=== PATIENT | male | born 1960 | race Caucasian/White ===

== ENCOUNTER → 2018-12-04 | Outpatient (CLI) | payer OTHER | END | disposition home or self-care (01) | LOC: PLD 08:18 → LAB SHORT 08:18 | DX: L82.1 Other seborrheic keratosis (principal) | CPT/HCPCS: 88305 ==

== ENCOUNTER 2025-03-25 20:24 | Observation (INO) | payer BC ==
[~2025-03-25] VITALS: Ht 182.9 cm; Wt 95.8 kg
[2025-03-25] MEDS ORDERED: NS 1,000 ML IV SCH (20:45)
[2025-03-25 21:04] LABS: BASOPHILS ABSOLUTE AUTO 0.02 K/mm3 (0.00-0.23); BASOPHILS PERCENT AUTO 0 % (0-2); EOSINOPHILS ABSOLUTE AUTO 0.00 K/mm3 (0.00-0.68); EOSINOPHILS PERCENT AUTO 0 % (0-6); Hematocrit 42.2 % (37.0-53.0); Hemoglobin 14.9 g/dL (13.5-17.5); IMMATURE GRAN ABSOLUTE AUTO 0.01 K/mm3 (0.00-0.10); IMMATURE GRAN PERCENT AUTO 0 % (0-1); LYMPHOCYTES ABSOLUTE AUTO 1.32 K/mm3 (0.84-5.20); LYMPHOCYTES PERCENT AUTO 20 % (21-46); MONOCYTES ABSOLUTE AUTO 0.44 K/mm3 (0.16-1.47); MONOCYTES PERCENT AUTO 7 % (4-13); Mean Corpuscular HGB Conc 35.3 g/dL (31.5-36.5); Mean Corpuscular Volume 92 fL (80-100); NEUTROPHILS ABSOLUTE AUTO 4.72 K/mm3 (1.96-9.15); NEUTROPHILS PERCENT AUTO 72 % (41-73); NRBC ABSOLUTE 0.00 K/mm3 (0.00-0.02); NRBC Auto 0.0 /100 WBC (0.0-0.2); Platelet Count 214 K/mm3 (150-400); RDW Coefficient Variation 12.5 % (11.7-14.2); RDW Standard Deviation 42.3 fL (35.1-46.3)
[2025-03-25 21:19] LABS: Alanine Aminotransfer (ALT/SGP 44.0 U/L (12-78); Albumin, Blood 3.8 g/dL (3.4-5.0); Albumin/Globulin Ratio 1.1 (0.8-1.8); Anion Gap 10.0 mmol/L (3-11); Aspartate Aminotrans (AST/SGOT 22.0 U/L (12-37); Bilirubin, Total 0.7 mg/dL (0.1-1.0); Blood Urea Nitrogen 21.0 mg/dL (8-24); CO2, Blood 25.0 mmol/L (21-32); Calcium, Blood 9.1 mg/dL (8.5-10.1); Chloride, Blood 104.0 mmol/L (98-108); Creatinine, Blood 0.88 mg/dL (0.60-1.20); Globulin, Blood 3.6 g/dL (2.2-4.0); Glucose, Blood 146.0 mg/dL (70-99); Magnesium, Blood 1.9 mg/dL (1.6-2.4); Potassium, Blood 4.2 mmol/L (3.5-5.5); Sodium, Blood 135.0 mmol/L (136-145); Total Protein, Blood 7.4 g/dL (6.4-8.2)
[2025-03-25 22:08] LABS: Source, Urine Voided
[2025-03-25 22:14] LABS: Bilirubin, Urine Neg (Neg); Glucose Qualitative, Urine Neg (Neg); Ketones, Urine 2+ (Neg); Leukocyte Esterase, Urine Neg (Neg); Protein, Urine 2+ (Neg); Specific Gravity, Urine 1.010 (1.003-1.022); Urobilinogen, Urine NORM (Normal)
[2025-03-25 22:29] LABS: Color, Urine Yellow (P-Yellow)
[2025-03-25 22:30] LABS: Red Blood Cells, Urine Not Seen /hpf (0-2); White Blood Cells, Urine Not Seen /hpf (0-5)
[2025-03-25] MEDS ORDERED: NS 1,000 ML IV ONE (22:40)
[2025-03-25] MEDS ORDERED: FLU VACC TS2025-26(6MOS UP)/PF 45 MCG/0.5 ML SYRINGE IM ONE (23:10)
[2025-03-25] MEDS ORDERED: Ondansetron HCl 2 MG / ML 2ML Vial IV PRN (23:10)
[2025-03-25] MEDS ORDERED: Mag Sulfate 1 GM/D5% 100ML 100 ML IV STA (23:45)
[2025-03-26] VITALS (7 sets, daily range): BP systolic 146–156; BP diastolic 75–93
[2025-03-26 00:09] LABS: Phosphorus, Blood 2.3 mg/dL (2.5-4.9)
[2025-03-26] MEDS ORDERED: DILT30 PO (00:55)
[2025-03-26] MEDS ORDERED: MEGA 3-6-9 SO1233 MG PO (00:58)
[2025-03-26] MEDS ORDERED: CENTRUM SILVER1 EAC2 PO (00:59)
[2025-03-26 05:03] LABS: BASOPHILS ABSOLUTE AUTO 0.01 K/mm3 (0.00-0.23); BASOPHILS PERCENT AUTO 0 % (0-2); EOSINOPHILS ABSOLUTE AUTO 0.00 K/mm3 (0.00-0.68); EOSINOPHILS PERCENT AUTO 0 % (0-6); Hematocrit 39.7 % (37.0-53.0); Hemoglobin 14.1 g/dL (13.5-17.5); IMMATURE GRAN ABSOLUTE AUTO 0.02 K/mm3 (0.00-0.10); IMMATURE GRAN PERCENT AUTO 0 % (0-1); LYMPHOCYTES ABSOLUTE AUTO 1.83 K/mm3 (0.84-5.20); LYMPHOCYTES PERCENT AUTO 30 % (21-46); MONOCYTES ABSOLUTE AUTO 0.48 K/mm3 (0.16-1.47); MONOCYTES PERCENT AUTO 8 % (4-13); Mean Corpuscular HGB Conc 35.5 g/dL (31.5-36.5); Mean Corpuscular Volume 93 fL (80-100); NEUTROPHILS ABSOLUTE AUTO 3.77 K/mm3 (1.96-9.15); NEUTROPHILS PERCENT AUTO 62 % (41-73); NRBC ABSOLUTE 0.00 K/mm3 (0.00-0.02); NRBC Auto 0.0 /100 WBC (0.0-0.2); Platelet Count 191 K/mm3 (150-400); RDW Coefficient Variation 12.5 % (11.7-14.2); RDW Standard Deviation 42.5 fL (35.1-46.3)
[2025-03-26 05:41] LABS: Alanine Aminotransfer (ALT/SGP 39.0 U/L (12-78); Albumin, Blood 3.5 g/dL (3.4-5.0); Albumin/Globulin Ratio 1.2 (0.8-1.8); Anion Gap 10.0 mmol/L (3-11); Aspartate Aminotrans (AST/SGOT 22.0 U/L (12-37); Bilirubin, Total 0.7 mg/dL (0.1-1.0); Blood Urea Nitrogen 16.0 mg/dL (8-24); CO2, Blood 24.0 mmol/L (21-32); Calcium, Blood 8.3 mg/dL (8.5-10.1); Chloride, Blood 104.0 mmol/L (98-108); Creatinine, Blood 0.78 mg/dL (0.60-1.20); Globulin, Blood 3.0 g/dL (2.2-4.0); Glucose, Blood 160.0 mg/dL (70-99); Potassium, Blood 3.9 mmol/L (3.5-5.5); Sodium, Blood 134.0 mmol/L (136-145); Total Protein, Blood 6.5 g/dL (6.4-8.2)
--- NOTE | 2025-03-26 06:47 | NUR ---
PT ARRIVED FROM ED VIA STRETCHER. PT'S GAIT WAS UNSTEADY WHILE GETTING A STANDING WEIGHT. 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 PT STATES HE DOES NOT REMEMBER THE EPISODE AT ALL. PT STATES HE REMEMBERS CLOCKING IN TO WORK AND WAKING UP IN THE ED. PT IS AWARE OF THE TIME, DATE, CURRENT LOCATION, SELF, BUT IS UNAWARE OF WHO THE CURRENT PRESIDENT IS. PT HAS SHORT TERM MEMORY LOSS AND REPEATS HIMSELF UNKNOWINGLY. PT'S BROTHER, MADELINE, IS AT THE BEDSIDE AND STATES PT'S BEHAVIOR IS IS DIFERENT FROM HIS BASELINE. PT HAS AN ECHO PENDING TODAY. DR. FUENTES CAME TO THE BEDSIDE TO ASSESS PT. NO NEW ORDERS GIVEN. IV FLUIDS INFUSING. BED ALARM ON. BED LOCKED IN LOWEST POSITION. CALL LIGHT WITHIN REACH. PT USING URINAL APPROPRIATELY.
[2025-03-26] MEDS ORDERED: Enoxaparin 40 MG/0.4 ML SYR SC SCH (09:00)
--- NOTE | 2025-03-26 09:50 | NUR ---
am note this rn assumed care at 0700. vital signs stable. tele sinus rhythm 80-90s. spo2 >90% on room air. patient is alert and oriented x4. patient will repeat self several times and has difficulty remembering the events that lead up to his syncopal episode. perrla. patient has equal strength in net software architect. patient denies pain, chest pain/pressure or shortness of breath. patient lung sounds clear. see shift assessent for further detials. Md Barry and team in to see patient and discussed plan. The plan is for an MRI to be ordered and continue to monitor. Patient agrees with this plan. Patient brother Reddy in there for the doctors rounding. patient is febrile despite tylenol md's aware. patient given cool cloth and ice to help with fever. see vital signs section.
[2025-03-26 12:45] LABS: Influenza A/2009-H1 Not Detected (NOT DETECT); SARS-Cov-2 (COVID-19), BioFire Not Detected (NOT DETECT)
[2025-03-26] MEDS ORDERED: ESCI20 PO (15:15)
[2025-03-26] MEDS ORDERED: LOSA50 PO (15:15)
[2025-03-26] MEDS ORDERED: Diltiazem HCl 300 MG Cap.CD PO SCH (17:00)
--- NOTE | 2025-03-26 17:31 | NUR ---
SHIFT SUMMARY patient short term memory has improved throughout the shift and patient is able to remember staff. vital signs remain stable. patient had mri this shift. patient sat in the chair and able to walk to the bathroom. patient had no symptoms with exerction. no acute changes
[2025-03-27 04:18] VITALS: BP 150/87
[2025-03-27 04:23] LABS: BASOPHILS ABSOLUTE AUTO 0.01 K/mm3 (0.00-0.23); BASOPHILS PERCENT AUTO 0 % (0-2); EOSINOPHILS ABSOLUTE AUTO 0.04 K/mm3 (0.00-0.68); EOSINOPHILS PERCENT AUTO 1 % (0-6); Hematocrit 41.7 % (37.0-53.0); Hemoglobin 14.6 g/dL (13.5-17.5); IMMATURE GRAN ABSOLUTE AUTO 0.01 K/mm3 (0.00-0.10); IMMATURE GRAN PERCENT AUTO 0 % (0-1); LYMPHOCYTES ABSOLUTE AUTO 2.60 K/mm3 (0.84-5.20); LYMPHOCYTES PERCENT AUTO 39 % (21-46); MONOCYTES ABSOLUTE AUTO 0.78 K/mm3 (0.16-1.47); MONOCYTES PERCENT AUTO 12 % (4-13); Mean Corpuscular HGB Conc 35.0 g/dL (31.5-36.5); Mean Corpuscular Volume 93 fL (80-100); NEUTROPHILS ABSOLUTE AUTO 3.28 K/mm3 (1.96-9.15); NEUTROPHILS PERCENT AUTO 49 % (41-73); NRBC ABSOLUTE 0.00 K/mm3 (0.00-0.02); NRBC Auto 0.0 /100 WBC (0.0-0.2); Platelet Count 184 K/mm3 (150-400); RDW Coefficient Variation 12.4 % (11.7-14.2); RDW Standard Deviation 42.6 fL (35.1-46.3)
[2025-03-27 04:58] LABS: Magnesium, Blood 2.1 mg/dL (1.6-2.4)
[2025-03-27 04:59] LABS: Alanine Aminotransfer (ALT/SGP 45.0 U/L (12-78); Albumin, Blood 3.5 g/dL (3.4-5.0); Albumin/Globulin Ratio 1.0 (0.8-1.8); Anion Gap 7.0 mmol/L (3-11); Aspartate Aminotrans (AST/SGOT 32.0 U/L (12-37); Bilirubin, Total 0.7 mg/dL (0.1-1.0); Blood Urea Nitrogen 14.0 mg/dL (8-24); CO2, Blood 30.0 mmol/L (21-32); Calcium, Blood 8.4 mg/dL (8.5-10.1); Chloride, Blood 107.0 mmol/L (98-108); Creatinine, Blood 0.83 mg/dL (0.60-1.20); Globulin, Blood 3.4 g/dL (2.2-4.0); Glucose, Blood 128.0 mg/dL (70-99); Potassium, Blood 3.8 mmol/L (3.5-5.5); Sodium, Blood 140.0 mmol/L (136-145); Total Protein, Blood 6.9 g/dL (6.4-8.2)
--- NOTE | 2025-03-27 05:35 | NUR ---
SHIFT SUMMARY PATIENT A/OX4. NO NEURO SX NOTED. UP IN ROOM IND TO RR W/ STEADY GAIT. PATIENT SPEAKS CLEARLY AND RECENT MEMORY INTACT. STILL REPORTS NOT REMEMBERING EVENTS LEADING UP TO ADMISSION. VSS. AM LABS UNREMARKABLE. PATIENT ANXIOUS TO DISCHARGE TODAY. NO PAIN OR DISTRESS REPORTED. PLAN OF CARE ONGOING.
[2025-03-27 08:14] VITALS: BP 158/87
[2025-03-27 11:56] VITALS: BP 150/97
--- NOTE | 2025-03-27 16:56 | NUR ---
discharge note pt a&ox4, albe to make needs known. imaging clear. updated pt on plan of care, follow up iwth pcp. vss. pt eagar to go home. Verbalized understanding of not driving for a week, brother in room. Pt dc'd with zio patch, verbalized understanding of instructions. No medication changes. Pt dressed in home clothes. Iv's removed. Telemetry removed. Pt ambulated to private vehicle iwth all belonings and brother.
== END 2025-03-27 15:09 | disposition home or self-care (01) ==
LOC: ER 20:24 → ERHOLD 20:25 → PCU 20:25
PROVIDERS: Emergency Medicine; Student in an Organized Health Care Education/Training Program; ADMIT Internal Medicine
DX: R55 Syncope and collapse (principal); I10 Essential (primary) hypertension; Z79.899 Other long term (current) drug therapy; Z88.1 Allergy status to other antibiotic agents; Z91.014 Allergy to mammalian meats; Z91.09 Other allergy status, other than to drugs and biological substances
CPT/HCPCS: 0202U; 36415; 70450; 70551; 71045; 80053; 81001; 82947; 83735; 83880; 84100; 84484; 85025; 85379; 87040; 93005; 93010; 93246; 96361; 96365; 96366; 96367; 96372; 96375; 99285-25; A9270; G0378; J1650; J2405; J3475; J7030; J7060